=== PATIENT | male | born 1950 | race Caucasian/White ===

== ENCOUNTER 2017-02-15 05:17 | Inpatient (IN) | payer MEDICARE, OTHER ==
[~2017-02-15 05:17] MED LIST: ADVIL200 M2 PO; ASPIRIN EC81 M1 PO; BRILINTA PO; BRILINTA90 M1 PO; CIPRO500 MG PO; COMPETE1 EACH PO; COREG12.5 M1 PO; CRESTOR40 MG PO; GLUCOPHAGE1000 MG PO; GLYBURIDE MICRON6 MG PO; HUMALOG100 UNITS/ SC; HUMULIN R100 U/ML SQ; HYDROCHLOROTHIA25 MG PO; ISOSORBIDE MONO30 M4 PO; LASIX20 M1 PO; LEVOTHROID200 MCG PO; LEVOXYL200 MC1 PO; LISINOPRIL10 M1 PO; LISINOPRIL10 MG PO; LOPRESSOR25 MG/TA1 PO; MUCOMYST200 MG/ML PO; NITROSTAT0.4 M1 SL; NITROSTAT0.4 MG SL; NOVOLIN R100 UNIT/1 SC; NOVOLOG100 U/M SQ; NOVOLOG100 UNITS/ SC; PLAVIX75 MG PO; PROTONIX40 M2 PO; SIMVASTATIN40 MG PO; TYLENOL EXTRA500 M1 PO; VITAMIN C1000 M1 PO; VITAMIN C500 M3 PO; VITAMIN D32000 UNI3 PO; ZESTRIL10 M3 PO
[2017-02-17] MEDS ORDERED: GLUCOPHAGE500 M3 PO (12:11)
[2017-02-17] MEDS ORDERED: ADULT LOW DOSE81 M1 PO (12:12)
[2017-02-17] MEDS ORDERED: ISOSORBIDE MONO30 M4 PO (12:12)
[2017-02-17] MEDS ORDERED: LOTRISONE CREAM15 GM TP (12:14)
[2017-02-17] MEDS ORDERED: ROSUVASTATIN CA10 MG PO (12:18)
[2017-02-17] MEDS ORDERED: FENOFIBRATE160 MG PO (12:18)
[2017-02-17] MEDS ORDERED: NEURONTIN300 M1 PO (12:19)
[2017-02-17] MEDS ORDERED: PROTONIX40 M2 PO (12:19)
[2017-02-19] MEDS ORDERED: NORCO 5-325 TA1 EACH PO (11:49)
[2017-02-19] MEDS ORDERED: BRILINTA90 M1 PO (13:23)
== END 2017-02-19 13:40 | DRG 460 ==
LOC: SHSB 05:17 → ORE 07:28 → PACU 11:40 → 5EA 13:30
PROVIDERS: ADMIT Neurological Surgery
PROC: 0SG10A1 (ICD-10-PCS; principal; 2017-02-15)
PROC: 07DR3ZZ Extraction of Iliac Bone Marrow, Percutaneous Approach (ICD-10-PCS; 2017-02-15)
DX: M48.06 Spinal stenosis, lumbar region (principal); I95.9 Hypotension, unspecified; I11.0 Hypertensive heart disease with heart failure; H90.5 Unspecified sensorineural hearing loss; I50.9 Heart failure, unspecified; E66.01 Morbid (severe) obesity due to excess calories; M54.16 Radiculopathy, lumbar region; M43.16 Spondylolisthesis, lumbar region; I25.10 Atherosclerotic heart disease of native coronary artery without angina pectoris; E11.9 Type 2 diabetes mellitus without complications; E03.9 Hypothyroidism, unspecified; R60.9 Edema, unspecified; E78.5 Hyperlipidemia, unspecified; K21.9 Gastro-esophageal reflux disease without esophagitis; N20.0 Calculus of kidney; I25.2 Old myocardial infarction; Z95.1 Presence of aortocoronary bypass graft; Z95.5 Presence of coronary angioplasty implant and graft; Z68.38 Body mass index [BMI] 38.0-38.9, adult
CPT/HCPCS: C1713; J0690; J1170; J1815; J2250; J2270; J3010; J7030